=== PATIENT | male | born 1960 | race American Indian/Alaskan Native ===

== ENCOUNTER 2016-06-21 20:17 | Emergency (ER) | payer SELFPAY ==
[2016-06-21 20:55] LABS: Basophils % (Auto) 0.6 % (0.0-1.8); Eosinophils % (Auto) 4.4 % (0.0-4.3); Hematocrit 49.8 % (35.5-45.6); Hemoglobin 16.3 gm/dl (11.8-15.2); Mean Corpuscular HGB Conc 33 % (32-34); Mean Corpuscular Hemoglobin 30 pg (28-32); Mean Corpuscular Volume 90 fl (84-94); Platelet Count 260 K/mm3 (140-440); Red Blood Count 5.52 M/mm3 (3.65-5.03); Red Cell Distribution Width 14.5 % (13.2-15.2); White Blood Count 8.7 K/mm3 (4.5-11.0)
--- NOTE | 2016-06-21 21:03 | Emergency Department Report ---
Chief Complaint: Abdominal Pain Stated Complaint: ABD PAIN Time Seen by Provider: 06/21/16 20:59 - HPI History of Present Illness: PT c/o mid abd pain worsening x 3 months. PT states he has a hx of GERD. PT states he feels the worst when he lays flat. PT states he gets nauseated. PT states he had a test for colon CA in 2011 and his pain started after that. PT state he had a polyp removed at that time. - ROS Review of Systems: -melena +nausea - diarrhea - Exam Vital Signs: Vital Signs 06/21/16 20:20 Temperature 99.1 F Pulse Rate 78 Respiratory 18 Rate Blood Pressure 110/82 [Right] O2 Sat by Pulse 99 Oximetry Physical Exam: pt looks well, non toxic. abd soft and not tender MSE screening note: Focused history and physical exam performed. Due to findings the following was ordered: ED Medical Decision Making - Lab Data Result diagrams: 06/21/16 20:39 ED Disposition for MSE Condition: Stable
[2016-06-21 21:16] LABS: Alanine Aminotransferase 11 units/L (7-56); Albumin 4.2 g/dL (3.9-5); Albumin/Globulin Ratio 1.5 %; Alkaline Phosphatase 60 units/L (35-129); Anion Gap 15 mmol/L; BUN/Creatinine Ratio 8.57; Bilirubin,Total 0.6 mg/dL (0.1-1.2); Blood Urea Nitrogen 6 mg/dL (9-20); Calcium 8.8 mg/dL (8.4-10.2); Carbon Dioxide 27 mmol/L (22-30); Chloride 102.1 mmol/L (98-107); Glucose 89 mg/dL (75-100); Lipase 64 units/L (13-60); Potassium 4.3 mmol/L (3.6-5.0); Sodium 140 mmol/L (137-145)
[2016-06-21 21:19] LABS: Urine Drugs of Abuse Note Disclamer
[2016-06-21 21:37] LABS: Bilirubin,Urine NEG (Negative); Blood,Urine NEG (Negative); Ketones,Urine NEG (Negative); Leukocyte Esterase,Urine NEG (Negative); Mucus,Urine FEW /HPF; Nitrite,Urine NEG (Negative); Protein,Urine <15 mg/dL mg/dL (Negative); RBC,Urine < 1.0 /HPF (0.0-6.0); WBC,Urine < 1.0 /HPF (0.0-6.0)
[2016-06-22] MEDS ORDERED: ZOFRAN ONE (03:26)
[2016-06-22] MEDS ORDERED: MORPHINE ONE ×2 (03:27)
[2016-06-22] MEDS ORDERED: NACL 0.9% 1000 ML 1,000 ML ONE (03:59)
[2016-06-22] MEDS ORDERED: NACL ONE (06:52)
--- NOTE | 2016-06-22 07:24 | XRay Report ---
Flat and upright abdomen: History: Abdominal pain. Findings: No free intraperitoneal air. Stool in colon. No moderate distention or wall thickening. No radiopaque calculus or abnormal calcification. Impression: Stool in colon. No bowel distention.
--- NOTE | 2016-06-22 07:38 | Cat Scan Report ---
CT scan of abdomen and pelvis with IV contrast: History: Abdominal pain. Findings: Normal lung bases. No pleural pericardial effusion. Normal liver, spleen, gallbladder and pancreas. Pancreatic duct is visualized however does not appear dilated. No mass of the pancreatic head. Normal adrenals and kidney parenchyma and bladder. Fluid in small bowel without significant bowel distention. No wall thickening. Stool throughout colon. The appendix is not visualized however no definite evidence of appendicitis is noted. No evidence of diverticulitis. Impression: Stool throughout colon probably suggestive for impaction.
--- NOTE | 2016-06-22 07:58 | Emergency Department Report ---
HPI - General Chief Complaint: Abdominal Pain Time Seen by Provider: 06/21/16 20:59 - HPI HPI: This is a 56-year-old -[place] male who presents to the emergency department, dropped off by his fiance, with a complaint of abdominal pain to the lower half of the abdomen is going on for the past 3 months. The patient cannot really explain asked why he decided to come in this evening other than the fact that he says that he was working and they told him he can no longer work in this condition. It is associated with some nausea with one episode of vomiting. He denies any problems with bowel or bladder, fever, back pain. He is not taking anything for symptoms prior to presentation. Patient is a poor historian. At first he says that he has a history of colon cancer from 2011. However then he says that he did not do any type of chemotherapy or radiation and the only surgery was removing some polyps so it is unclear whether he actually had any cancer. He says that he gets his primary care treatment normally from [facility]. No recent travel or sick contacts at home. ED Past Medical Hx - Past Medical History Previous Medical History?: Yes Hx Hypertension: No Hx CVA: No Hx Heart Attack/AMI: No Hx Congestive Heart Failure: No Hx Diabetes: No Hx Deep Vein Thrombosis: No Hx Pulmonary Embolism: No Hx GERD: No Hx Liver Disease: No Hx Renal Disease: No Hx Sickle Cell Disease: No Hx Arthritis: No Hx Headaches / Migraines: No Hx Seizures: No Hx Kidney Stones: No Hx Psychiatric Treatment: Yes (schizophrenia) Hx Asthma: No Hx COPD: No Hx Tuberculosis: No Hx Dementia: No Hx HIV: No Additional medical history: Colon CA - Surgical History Past Surgical History?: Yes Hx Coronary Stent: No Hx Open Heart Surgery: No Hx Pacemaker: No Hx Internal Defibrillator: No Hx Cholecystectomy: No Hx Appendectomy: No Hx Breast Surgery: No Additional Surgical History: left ear surgery. Colon - Social History Smoking Status: Current Every Day Smoker Substance Use Type: Alcohol - Medications Home Medications: Home Medications Medication Instructions Recorded Confirmed Last Taken Type Cephalexin [Keflex] 500 mg PO TID #21 capsule 01/18/14 Unknown Rx HYDROcodone/APAP 7.5-325 [[place] 1 each PO Q6HR PRN #16 tablet 01/18/14 Unknown Rx 7.5/325 mg] Naproxen [Naprosyn TAB] 500 mg PO BID #20 tablet 01/24/14 Unknown Rx Docusate Sodium [Colace] 100 mg PO BID PRN #20 capsule 06/22/16 Unknown Rx Magnesium Citrate [Citrate of 300 ml PO NOW #1 bottle 06/22/16 Unknown Rx Magnesia] ED Review of Systems ROS: Stated complaint: ABD PAIN Other details as noted in HPI Other: Gen: No chills, diaphoresis or fever Eyes: No eye pain or discharge ENT: No throat pain or ear pain Cardio: No chest pain, palpatations or edema. Lungs: No SOB or cough. Abd: +Abd Pain, +N/V : No dysuria, hematuria. Skin: No rash, lesions, pruritis Neuro: No headache, numbness or paresthesias. Physical Exam - Physical Exam Vital Signs: Vital Signs 06/21/16 20:20 Temperature 99.1 F Pulse Rate 78 Respiratory 18 Rate Blood Pressure 110/82 [Right] O2 Sat by Pulse 99 Oximetry Physical Exam: GENERAL: The patient is well-developed well-nourished. HEENT: Normocephalic. Atraumatic. Extraocular motions are intact. Has equal reactive to light bilaterally. Patient has moist mucous membranes. NECK: Supple. Trachea is midliney distress noted. CHEST/LUNGS: Clear to auscultation. There is no respiratory distress HEART/CARDIOVASCULAR: Regular. There is no tachycardia. There is no gallop rub or murmur. ABDOMEN: Abdomen is soft. Tenderness to palpation to the lower quadrants of the abdomen. No guarding or rebound tenderness. Patient has normal bowel sounds. There is no abdominal distention. SKIN: Warm and dry. NEURO: The patient is awake, alert, and oriented. The patient is cooperative. The patient has no focal neurologic deficits. The patient has normal speech MUSCULOSKELETAL: There is no tenderness or deformity. There is no limitation range of motion. There is no evidence of acute injury. ED Course Vital Signs 06/21/16 20:20 Temperature 99.1 F Pulse Rate 78 Respiratory 18 Rate Blood Pressure 110/82 [Right] O2 Sat by Pulse 99 Oximetry ED Medical Decision Making - Lab Data Result diagrams: 06/21/16 20:39 06/21/16 20:39 - Radiology Data Radiology results: report reviewed, image reviewed interpreted by me: X-ray of the abdomen shows stool throughout the colon. CT of the abdomen and pelvis with IV contrast shows no signs of bowel obstruction. There is stool throughout the colon showing some constipation. - Medical Decision Making 56-year-old male presents to the emergency department with complaint of some abdominal discomfort as well as some nausea with one episode of vomiting. Patient's vital signs were stable throughout his ED course. Patient's labs have been mostly unremarkable including normal belly labs such as bilirubin, lipase and LFTs. Patient was given some pain medication and IV fluid. Due to the patient's level of discomfort at first a CT of the abdomen and pelvis was done that showed no signs of bowel obstruction any significant acute process, only stool throughout the colon concerning for some constipation. Upon reevaluation the patient is feeling better. We discussed the labs and imaging results. He'll be discharged home with some stool softener any laxity of and encouraged to follow-up with his primary care doctor through the [id number]. He will return to the ER with any worsening of symptoms or any acute distress. - Differential Diagnosis palpation, colitis, appendicitis, constipation Critical Care Time: No Critical care attestation.: If time is entered above; I have spent that time in minutes in the direct care of this critically ill patient, excluding procedure time. ED Disposition Clinical Impression: Increased stool volume Abdominal pain Qualifiers: Abdominal location: unspecified location Qualified Code(s): R10.9 - Unspecified abdominal pain Disposition: DISCHARGED TO HOME OR SELFCARE Is pt being admited?: No Condition: Stable Instructions: Abdominal Pain (ED), Constipation (ED) Additional Instructions: These follow-up with your primary care doctor in the next few days. Return to the emergency department with any worsening of your symptoms or any acute distress. Prescriptions: Docusate Sodium [Colace] 100 mg PO BID PRN #20 capsule PRN Reason: Constipation Magnesium Citrate [Citrate of Magnesia] 300 ml PO NOW #1 bottle Referrals: PRIMARY CARE, [Primary Care Provider] - 3-5 Days Forms: Work/School Release Form(ED) Time of Disposition: 08:00
[2016-06-22 08:23] VITALS: BP 118/80
== END 2016-06-22 08:00 | disposition home or self-care (01) ==
LOC: ED 20:17
DX: R19.5 Other fecal abnormalities (principal); R10.30 Lower abdominal pain, unspecified; F17.200 Nicotine dependence, unspecified, uncomplicated; F20.9 Schizophrenia, unspecified
CPT/HCPCS: 36415; 74020; 74177; 80053; 80307; 81001; 83690; 85025; 99284; G0480; J2270; J2405; J7030; Q9967; 80320